=== PATIENT | female | born 1965 | race African-American/Black ===

== ENCOUNTER 2022-08-24 16:20 | Emergency (ER) | payer OTHER ==
[~2022-08-24] VITALS: Ht 154.9 cm; Wt 115.0 kg
[2022-08-24] MEDS ORDERED: ASPIRIN 81MG TABLET PO ONE (16:45)
[2022-08-24] MEDS: NITROGLYCERIN 0.4MG TABLET SL SL PRN ×2 (17:32→17:52)
[2022-08-24 18:09] LABS: CHLORIDE 106 mEq/L (98-107)
[2022-08-24 18:12] LABS: BASOPHILS % 0.4 % (0.0-2.0); EOSINOPHILS % 1.5 % (0.0-5.0); HEMOGLOBIN. 12.5 g/dL (12.0-16.0); LYMPHOCYTES % 52.9 % (20.0-50.0); MEAN CORPUSCULAR HEMOGLOBIN 28.7 pg (28.0-32.0); MEAN CORPUSCULAR VOLUME 87.3 fL (81.0-99.0); MEAN PLATELET VOLUME 9.9 fl (7.4-10.4); MONOCYTES % 7.3 % (2.0-8.0); NEUTROPHILS % 37.9 % (40.0-76.0); PLATELET 233 x1000/uL (130-400); RED BLOOD CELL COUNT 4.35 mill/uL (4.2-5.4); RED CELL DISTRIBUTION WIDTH 14.2 % (11.6-14.6)
[2022-08-24 19:30] VITALS: BP 124/70
[2022-08-24] MEDS ORDERED: ASPI-1497 MT (19:37)
== END 2022-08-24 20:00 | disposition home or self-care (01) ==
LOC: ER 16:20
DX: I20.8 Other forms of angina pectoris (principal); R07.89 Other chest pain; I25.2 Old myocardial infarction; I10 Essential (primary) hypertension
CPT/HCPCS: 36415; 71045; 80053; 83880; 84484; 85025; 93005; 99285; Z7610

== ENCOUNTER 2023-09-02 18:37 | Emergency (ER) | payer OTHER ==
[~2023-09-02] VITALS: Ht 152.4 cm; Wt 109.0 kg
[~2023-09-02 18:37] MED LIST: ASPI-1497 MT
[2023-09-02 19:06] VITALS: BP 134/85; PULSE 72; RESP 16; TEMP 98.4; O2SAT 100
[2023-09-02] MEDS ORDERED: OCUFLX EACHEYE (19:43)
== END 2023-09-02 20:26 | disposition home or self-care (01) ==
LOC: ER 18:37
DX: H10.9 Unspecified conjunctivitis (principal); I25.10 Atherosclerotic heart disease of native coronary artery without angina pectoris; I25.2 Old myocardial infarction
CPT/HCPCS: 99281